=== PATIENT | female | born 1965 | race Caucasian/White ===

== ENCOUNTER 2022-11-05 17:49 | Emergency (ER) | payer SELFPAY ==
[2022-11-05] MEDS ORDERED: Ibuprofen 200 MG TAB ONE (18:24)
[2022-11-05] MEDS ORDERED: Bacitracin 1 PK ONE (18:24)
== END 2022-11-05 19:33 | disposition home or self-care (01) ==
LOC: NAV ERS 17:49
DX: S60.222A Contusion of left hand, initial encounter (principal); W20.8XXA Other cause of strike by thrown, projected or falling object, initial encounter